=== PATIENT | female | born 2000 | race Asian ===

== ENCOUNTER 2024-10-14 02:25 | Inpatient (IN) | payer SELFPAY ==
[2024-10-14] MEDS ORDERED: Nalbuphine 10 MG/1 ML Vial IVPUSH PRN (02:46)
[2024-10-14] MEDS ORDERED: Lidocaine 1% 50 ML MDV INJECT PRN (02:46)
[2024-10-14] MEDS ORDERED: Ondansetron 4 MG/2 ML SDV IVPUSH PRN (02:46)
[2024-10-14] MEDS: Lactated Ringers 1,000 ML IV SCH (02:50)
[2024-10-14 02:57] LABS: BASOPHILS PERCENT AUTO 0.2 % (0.0-1.0); EOSINOPHILS ABSOLUTE AUTO 0.1 K/mm3 (0.0-0.4); EOSINOPHILS PERCENT AUTO 0.8 % (0.0-6.0); HEMATOCRIT 32.2 % (37.0-47.0); HEMOGLOBIN 10.3 gm/dl (12.0-16.0); IMMATURE GRAN ABSOLUTE AUTO 0.09 K/mm3 (0.00-0.05); IMMATURE GRAN PERCENT AUTO 0.6 % (0.0-0.4); LYMPHOCYTES PERCENT AUTO 19.5 % (24.0-44.0); MEAN CORPUSCULAR HEMOGLOBIN 24.7 pg (28.0-32.0); MEAN CORPUSCULAR VOLUME 77.2 fl (83.0-99.0); MONOCYTES PERCENT AUTO 6.4 % (0.0-8.0); NEUTROPHILS ABSOLUTE AUTO 11.2 K/mm3 (1.8-7.7); NEUTROPHILS PERCENT AUTO 72.5 % (41.0-71.0); PLATELET COUNT,PLT 247 K/mm3 (150-400); RED BLOOD CELL COUNT 4.17 M/mm3 (4.10-5.30); WHITE BLOOD CELL COUNT,WBC 15.41 K/mm3 (3.9-11.3)
[2024-10-14] MEDS ORDERED: diphenhydrAMINE 50 MG/ML SDV IVPUSH PRN (03:13)
[2024-10-14] MEDS ORDERED: ePHEDrine 50 MG/ML SDV IVPUSH PRN (03:13)
[2024-10-14] MEDS: Bupivacaine/fentaNYL/NS 100 ML Bag EPIDUR PRN (03:30)
[2024-10-14] MEDS: Oxytocin/0.9 % Sodium Chloride 30 UNIT/500 ML BAG IV SCH (04:30)
[2024-10-14] MEDS ORDERED: Acetaminophen 325 MG Tab PO PRN (06:28)
[2024-10-14] MEDS: Witch Hazel Medicated Pads 40/Jar TOP PRN (06:53)
[2024-10-14] MEDS: Benzocaine/Menthol 20%-0.5% Spray 78 GM Cannister TOP PRN (06:53)
[2024-10-14] MEDS: Ibuprofen 600 MG Tab PO SCH (07:15)
[2024-10-15] MEDS: Ibuprofen 600 MG Tab PO SCH (02:29)
[2024-10-15] MEDS ORDERED: Docusate Sodium 100 MG Cap PO PRN (07:03)
[2024-10-15] MEDS: Polyethylene Glycol 3350 Powder 17 GM Packet PO SCH (08:15)
[2024-10-15] MEDS: Docusate Sodium 100 MG Cap PO PRN (16:35)
== END 2024-10-15 18:20 | disposition home or self-care (01) | DRG 807 ==
LOC: UNDOADMOB 02:25 → JD.OB 02:25 → OBSVTOIN 04:21 → JD.OB 04:21 → INTOOBSV 04:21
PROVIDERS: ADMIT Obstetrics & Gynecology; ATTEND Obstetrics & Gynecology
PROC: 10E0XZZ Delivery of Products of Conception, External Approach (ICD-10-PCS; principal; 2024-10-14)
PROC: 0KQM0ZZ Repair Perineum Muscle, Open Approach (ICD-10-PCS; 2024-10-14)
PROC: 3E0R3BZ Introduction of Anesthetic Agent into Spinal Canal, Percutaneous Approach (ICD-10-PCS; 2024-10-14)
PROC: 00HU33Z Insertion of Infusion Device into Spinal Canal, Percutaneous Approach (ICD-10-PCS; 2024-10-14)
DX: O48.0 Post-term pregnancy (principal); Z37.0 Single live birth; O77.0 Labor and delivery complicated by meconium in amniotic fluid; O70.1 Second degree perineal laceration during delivery; Z3A.40 40 weeks gestation of pregnancy
CPT/HCPCS: 01967; 36415; 51701; 59025; 59409; 85025; 86592; 86850; 86900; 86901; A9270-GY; J3490; J7120; J7999